=== PATIENT | female | born 1965 | race Caucasian/White ===

== ENCOUNTER 2024-07-01 10:57 | Outpatient (CLI) | payer MEDICARE, SELFPAY ==
--- NOTE | 2024-07-01 09:40 | MM_ITS ---
WS: [id number] VIEWS: MLO and CC views both breasts. 3D digital tomosynthesis is also included in this exam. Baseline exam. There is an 8 x 3 mm ovoid nodule at about the 12 o'clock position in the RIGHT breast at anterior de pth. The remaining aspects of the RIGHT breast are unremarkable. There is an 8 x 5 mm nodular density in the LEFT breast almost directly behind the nipple also at anterior depth. No suspicious calcifica tion or architectural distortion in either breast. Compression spot images as well as regional ultras ound of both breasts would be indicated for further work-up. There are scattered areas of fibroglandu lar density. MM/[id number] Impression: BI-RADS: 0-Incomplete: Need additional imaging evaluation FOLLOW-UP: See Report This mammogram was also analyzed by the Computer Aided Detection System [employer].
== END 2024-07-01 10:58 | disposition home or self-care (01) ==
PROVIDERS: PCP Nurse Practitioner Family; Visit Provider Nurse Practitioner Family
DX: Z12.31 Encounter for screening mammogram for malignant neoplasm of breast (principal)
CPT/HCPCS: 77063; 77067